=== PATIENT | female | born 1970 | race African-American/Black ===

== ENCOUNTER 2019-07-15 10:22 | Emergency (ER) | payer SELFPAY ==
--- NOTE | 2019-07-15 11:05 | ER Document Report ---
ED Medical Screen (RME) - General Chief Complaint: Headache Stated Complaint: HEADACHE Time Seen by Provider: 07/15/19 11:00 Notes: Patient is a 49-year-old female who presents to the emergency department with a chief complaint of headache. Her headache started yesterday. She states that it is only slight now. She has been taking ibuprofen to help with her pain. She denies any numbness, tingling, or any other symptoms. Patient has a history of hypertension and was taken off her lisinopril/hydrochlorothiazide. Patient states that she has not been on them for a while. Exam: S1, S2. Blood pressure 170/124. I have greeted and performed a rapid initial assessment of this patient. A comprehensive ED assessment and evaluation of the patient, analysis of test results and completion of medical decision making process will be conducted by an additional ED providers. Physical Exam - Vital signs Vitals: Temp Pulse Resp BP Pulse Ox 99.5 F 100 18 170/124 H 97 07/15/19 10:42 07/15/19 10:42 07/15/19 10:42 07/15/19 10:42 07/15/19 10:42 Course - Vital Signs Vital signs: Temp Pulse Resp BP Pulse Ox 99.5 F 100 18 170/124 H 97 07/15/19 10:42 07/15/19 10:42 07/15/19 10:42 07/15/19 10:42 07/15/19 10:42
[2019-07-15 12:09] LABS: ABSOLUTE EOSINOPHILS # (AUTO) 0.1 10^3/uL (0.0-0.6); ABSOLUTE LYMPHOCYTES (AUTO) 0.9 10^3/uL (0.5-4.7); ABSOLUTE MONOCYTES (AUTO) 0.9 10^3/uL (0.1-1.4); BASOPHILS % (AUTO) 0.8 % (0-2); EOSINOPHILS % (AUTO) 1.1 % (0-6); HEMATOCRIT 37.9 % (36.0-47.0); HEMOGLOBIN 12.4 g/dL (12.0-15.5); LYMPHOCYTES % (AUTO) 15.4 % (13-45); MEAN CORPUSCULAR HEMOGLOBIN 26.3 pg (27.0-33.4); MEAN CORPUSCULAR HGB CONC 32.7 g/dL (32.0-36.0); MEAN CORPUSCULAR VOLUME 80 fl (80-97); MONOCYTES % (AUTO) 15.1 % (3-13); PLATELET COUNT 139 10^3/uL (150-450); RED BLOOD COUNT 4.72 10^6/uL (3.72-5.28); RED CELL DISTRIBUTION WIDTH 14.9 % (11.5-14.0); SEGMENTED NEUTROPHILS % (AUTO) 67.6 % (42-78); TOTAL CELLS COUNTED % (AUTO) 100 %; WHITE BLOOD COUNT 5.9 10^3/uL (4.0-10.5)
[2019-07-15 12:24] LABS: APPEARANCE,URINE SLIGHTLY-CLOUDY; BILIRUBIN,URINE NEGATIVE (NEGATIVE); GLUCOSE, URINE NEGATIVE (NEGATIVE); KETONES,URINE NEGATIVE (NEGATIVE); PROTEIN,URINE 100 mg/dL (NEGATIVE); URINE SPECIFIC GRAVITY 1.025
[2019-07-15 12:27] LABS: ALBUMIN 3.4 g/dL (3.5-5.0); ALKALINE PHOSPHATASE 59 U/L (38-126); ASPARTATE AMINO TRANSFERASE 78 U/L (14-36); BILIRUBIN,DIRECT 0.1 mg/dL (0.0-0.4); BILIRUBIN,TOTAL 0.7 mg/dL (0.2-1.3); BLOOD UREA NITROGEN 15 mg/dL (7-20); CALCIUM 8.7 mg/dL (8.4-10.2); COLOR,URINE YELLOW; GLUCOSE 77 mg/dL (75-110); POTASSIUM 3.5 mmol/L (3.6-5.0); TOTAL PROTEIN 7.5 g/dL (6.3-8.2)
[2019-07-15 12:32] LABS: ANION GAP 7 (5-19); CARBON DIOXIDE 30 mmol/L (22-30); CHLORIDE 100 mmol/L (98-107)
--- NOTE | 2019-07-15 13:14 | EKG REPORT ---
SEVERITY:- ABNORMAL ECG - SINUS RHYTHM LVH WITH SECONDARY REPOLARIZATION ABNORMALITY : Confirmed by: Hong Pfeiffer MD 15-Jul-2019 13:12:54
--- NOTE | 2019-07-15 15:01 | ER Document Report ---
ED General - General Chief Complaint: Headache >24 hrs old Stated Complaint: HEADACHE Time Seen by Provider: 07/15/19 11:00 Mode of Arrival: Ambulatory Information source: Patient TRAVEL OUTSIDE OF THE [place] IN LAST 30 DAYS: No - HPI Notes: Patient presents with multiple complaints. She states for 2 months she has had diffuse joint aches. She states that the joint that hurts randomly changes. She has had also some swelling of certain fingers. Currently she has no joint pain or finger swelling. She also states that yesterday she had a headache and vomited once. She states she has no headache now and is no longer nauseous. She states she had several frequent stools yesterday but normal stool today she states that she has had no dysuria urgency frequency. No cough cold or congestion. She has never been previously diagnosed with any type of arthritis. She also said yesterday she had some sensations of her heart racing but none today. Patient's joint pain has been moderate to severe. She states sometimes she cannot even bend her toes when her left foot has the swelling. Currently her left foot is normal. Currently she has no pain in the left foot. There is nothing that makes the pain better except rest. It is worse with movement. The pain radiates from the affected joint up or down the extremity. It is intermittent. - Related Data Allergies/Adverse Reactions: No Known Allergies Allergy (Unverified 07/15/19 11:05) Past Medical History - General Information source: Patient - Social History Smoking Status: Never Smoker Chew tobacco use (# tins/day): No Frequency of alcohol use: None Drug Abuse: None Family History: Reviewed & Not Pertinent Patient has suicidal ideation: No Patient has homicidal ideation: No - Past Medical History Cardiac Medical History: Reports: Hx Hypertension Review of Systems - Review of Systems Constitutional: denies: Chills, Fever Cardiovascular: Palpitations. denies: Chest pain Respiratory: denies: Cough, Short of breath Gastrointestinal: denies: Abdominal pain, Diarrhea -: Yes All other systems reviewed and negative Physical Exam - Vital signs Vitals: Temp Pulse Resp BP Pulse Ox 99.5 F 100 18 170/124 H 97 07/15/19 10:42 07/15/19 10:42 07/15/19 10:42 07/15/19 10:42 07/15/19 10:42 Interpretation: Hypertensive - General General appearance: Appears well, Alert - HEENT Head: Normocephalic, Atraumatic Eyes: Normal Pupils: PERRL - Respiratory Respiratory status: No respiratory distress Chest status: Nontender Breath sounds: Normal Chest palpation: Normal - Cardiovascular Rhythm: Regular Heart sounds: Normal auscultation Murmur: No - Abdominal Inspection: Normal Distension: No distension Bowel sounds: Normal Tenderness: Nontender Organomegaly: No organomegaly - Back Back: Normal, Nontender - Extremities General upper extremity: Normal inspection, Nontender, Normal color, Normal ROM, Normal temperature General lower extremity: Normal inspection, Nontender, Normal color, Normal ROM, Normal temperature, Normal weight bearing. No: Cody's sign - Neurological Neuro grossly intact: Yes Cognition: Normal Orientation: AAOx4 [place] Coma Scale Eye Opening: Spontaneous Brando Coma Scale Verbal: Oriented Brando Coma Scale Motor: Obeys Commands [place] Coma Scale Total: 15 Speech: Normal Motor strength normal: LUE, RUE, LLE, RLE Sensory: Normal - Psychological Associated symptoms: Normal affect, Normal mood - Skin Skin Temperature: Warm Skin Moisture: Dry Skin Color: Normal Course - Re-evaluation Re-evalutation: 07/15/19 14:58 Patient presents with 2 months of intermittent migrating joint pain. As well as some headache and palpitations yesterday. Today she has essentially no symptoms. She has normal vitals other than uncontrolled blood pressure. She has complaints of joint pain but no joint pain currently and no joint ab normalities on exam currently. She also has an otherwise unremarkable exam and vitals as mentioned above. I am going to start her on medication for her elevated blood pressure. I am going to place her on some pain medicine and refer her to her primary doctor. I have informed her that she should discuss referral to rheumatology with her primary doctor. I did double check with the patient that she has a primary doctor and she says she does. She states [facility] 07/15/19 15:06 - Vital Signs Vital signs: Temp Pulse Resp BP Pulse Ox 99.5 F 100 16 157/118 H 99 07/15/19 10:42 07/15/19 10:42 07/15/19 13:01 07/15/19 13:00 07/15/19 13:01 - Laboratory Result Diagrams: 07/15/19 11:55 07/15/19 11:55 Laboratory results interpreted by me: 07/15/19 07/15/19 07/15/19 11:55 11:55 11:55 MCH 26.3 L RDW 14.9 H Plt Count 139 L [place] % (Auto) 15.1 H Sodium 136.7 L Potassium 3.5 L Est GFR (MDRD) Non-Af 51 L AST 78 H Albumin 3.4 L Urine Protein 100 H Urine Urobilinogen 2.0 H - EKG Interpretation by Me EKG shows normal: Sinus rhythm Rate: Normal - 88 Rhythm: NSR Voltage: Consistant with LVH Discharge - Discharge Clinical Impression: Polyarthralgia, Palpitations Condition: Stable Disposition: HOME, SELF-CARE Additional Instructions: Please call your primary doctor as soon as possible. 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 He also need to discuss your blood pressure as it is very elevated today. I am going to start you on a blood pressure medicine today called Jazlyn. He will need to discuss with your primary doctor whether the dose we have started you that is effective and whether or not you need to increase or decrease the dose. This appointment should be approximately 5 to 7 days from today. Prescriptions: Amlodipine Besylate [Norvasc 5 mg Tablet] 5 mg PO DAILY #30 tablet Tramadol HCl [Ultram] 50 mg PO Q6 PRN 3 Days #12 tablet PRN Reason: Forms: Elevated Blood Pressure
[2019-07-15 15:14] VITALS: BP 152/109
== END 2019-07-15 15:17 | disposition home or self-care (01) ==
LOC: ER 10:22
DX: M25.50 Pain in unspecified joint (principal); R00.2 Palpitations; R51 Headache; R11.10 Vomiting, unspecified; I10 Essential (primary) hypertension
CPT/HCPCS: 36415; 80053; 81001; 84703; 85025; 93005; 93010; 99284

== ENCOUNTER 2019-08-18 19:01 | Emergency (ER) | payer OTHER ==
--- NOTE | 2019-08-18 20:14 | ER Document Report ---
ED General - General Chief Complaint: Breathing Difficulty Stated Complaint: SHORT OF BREATH, HAND/FEET SWELLING Time Seen by Provider: 08/18/19 19:14 TRAVEL OUTSIDE OF THE [place] IN LAST 30 DAYS: No - Related Data Allergies/Adverse Reactions: No Known Allergies Allergy (Unverified 07/15/19 11:05) Home Medications: tylenol garlic capsule vit d Past Medical History - Social History Smoking Status: Former Smoker Family History: Reviewed & Not Pertinent Patient has suicidal ideation: No Patient has homicidal ideation: No - Past Medical History Cardiac Medical History: Reports: Hx Hypertension Physical Exam - Vital signs Vitals: Temp Pulse Resp BP Pulse Ox 98.4 F 100 18 143/99 H 97 08/18/19 19:12 08/18/19 19:12 08/18/19 19:12 08/18/19 19:12 08/18/19 19:12 Course - Vital Signs Vital signs: Temp Pulse Resp BP Pulse Ox 98.4 F 100 18 143/99 H 97 08/18/19 19:12 08/18/19 19:12 08/18/19 19:12 08/18/19 19:12 08/18/19 19:12
--- NOTE | 2019-08-18 20:50 | ER Document Report ---
ED General - General Chief Complaint: Breathing Difficulty Stated Complaint: SHORT OF BREATH, HAND/FEET SWELLING Time Seen by Provider: 08/18/19 19:14 TRAVEL OUTSIDE OF THE [place] IN LAST 30 DAYS: No - Related Data Allergies/Adverse Reactions: No Known Allergies Allergy (Unverified 07/15/19 11:05) Home Medications: tylenol garlic capsule vit d Past Medical History - Social History Smoking Status: Former Smoker Family History: Reviewed & Not Pertinent Patient has suicidal ideation: No Patient has homicidal ideation: No - Past Medical History Cardiac Medical History: Reports: Hx Hypertension Physical Exam - Vital signs Vitals: Temp Pulse Resp BP Pulse Ox 98.4 F 100 18 143/99 H 97 08/18/19 19:12 08/18/19 19:12 08/18/19 19:12 08/18/19 19:12 08/18/19 19:12 - Notes Notes: Patient presents emerged department multiple complaints. 1 shot shortness of breath. She discusses dyspnea on exertion. Been off for couple days. No associated fevers cough chest pain or palpitations. #2 is swelling of the hands and feet. She says this is been going on for 2 to 3 months. There is any trauma to the area. They have been not have not been red or hot to the touch. She denies any overuse. The swelling does not get better in the morning. #3 joint pain. She is complaining of pain in her knee elbow and shoulder for the past several months also again denies any trauma falls or overuse. #4 facial rash. Located in the malar area of the face on and off for several months. No contact history associated with this. But she also reports that she is breaking out with a rash intermittently on her hand. It has been on several different fingers She denies any headaches or abnormal vision. She denies any nausea vomiting abdominal pain diarrhea or dysuria. She denies any recent tick bites. She has no history of IV drug abuse hepatitis or blood transfusions. No previous history of liver disease connective tissue disease. Reports that her aunt has a history of lupus is never been diagnosed with this. She denies any fevers night sweats or recent surgery. Past medical history sent for hypertension no diabetes or heart disease Social history does not smoke or drink at all. LMP was 2 weeks ago. Medications she has no control pills Review of systems pertinent positives and negatives in HPI otherwise all the systems were reviewed and acutely negative PHYSICIAN EXAM -vital signs are noted triage note and note from triage reviewed GENERAL: Well-appearing, well-nourished and in ___no acute distress___ HEAD: Atraumatic, normocephalic. EYES: Pupils equal round and reactive to light, extraocular movements intact, sclera anicteric, conjunctiva are normal. ENT: nares patent, oropharynx clear without exudates. Moist mucous membranes. NECK: supple without lymphadenopathy LUNGS: Breath sounds clear to auscultation bilaterally and equal. No wheezes rales or rhonchi. HEART: Regular rate and rhythm without murmurs ABDOMEN: Soft, nontender, normoactive bowel sounds. Spleen not enlarged EXTREMITIES: Minimal swelling in both hands. She has good capillary refill. There is trace edema in the foot. No palpable cords. I do not appreciate any swelling of the knee. There is no patella effusion just range of motion of the knee. Minimally tenderness over the patella bilaterally but there is no redness or increased warmth. Some minimal tenderness over the dorsum of the foot bilaterally no redness. Elbow and shoulder is nontender with good range of motion NEUROLOGICAL: No focal neurological deficits. Moves all extremities spontaneously and on command. PSYCH: Normal mood, normal affect. 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 The symptoms of rash and joint pain is really concerning for lupus. There is some routine laboratory studies that will be helpful in that evaluation. Advised the patient these labs will take several days f to return and she will need to follow-up w ith the family doctor 5 days of the clinic get those results. Shortness of breath she does appear to have a mild pneumonia. She is not tachycardic or tachypneic and has no significant comorbidities I think should be managed as an outpatient she will be given a dose of Zithromax here prescription she looks well she has no white count she is not toxic appearing. This may even represent a viral syndrome Dictation was done using voice recognition software. There may be some grammatical errors which are unintentional I discussed results of laboratory findings and diagnostic test with patient/ family. The treatment plan was explained and I reviewed the discharge instructions with them. Questions were answered. The patient/family verbalizes understanding 08/19/19 00:01 - Vital Signs Vital signs: Temp Pulse Resp BP Pulse Ox 98.4 F 100 14 140/101 H 97 08/18/19 19:12 08/18/19 19:12 08/18/19 21:01 08/18/19 21:01 08/18/19 21:01 - Laboratory Result Diagrams: 08/18/19 21:00 08/18/19 21:00 Laboratory results interpreted by me: 08/18/19 08/18/19 08/18/19 21:00 21:00 21:50 RDW 15.0 H Plt Count 141 L [place] % (Auto) 14.6 H ESR 34 H Potassium 3.2 L AST 101 H Albumin 3.2 L Urine Urobilinogen 2.0 H - Diagnostic Test Radiology reviewed: Reports reviewed - EEG read by me shows a normal sinus rhythm with some minimal nonspecific ST ST wave changes with flattening of the T waves change from previous Discharge - Discharge Clinical Impression: Pneumonia Qualifiers: Pneumonia type: due to unspecified organism Laterality: bilateral Arthralgia Qualifiers: Joint pain location: unspecified Qualified Code(s): M25.50 - Pain in unspecified joint Condition: Good Disposition: HOME, SELF-CARE Instructions: Pneumonia ([facility]), Arthralgia ([facility]) Additional Instructions: Please review the discharge instructions, they will tell you about your disease/injury and what you need to return to the ED for Return to the ED if you feel worse or can follow-up with your family doctor Report that you follow-up with your family doctor or the clinic in 3 to 5 days check the results of your blood work Return if you develop high fevers worsening shortness of breath Prescriptions: Ketorolac Tromethamine [Toradol 10 mg Tablet] 10 mg PO Q6HP PRN #15 tablet PRN Reason: Azithromycin [Zithromax] 250 mg PO DAILY #4 tablet
[2019-08-18 21:12] LABS: ABSOLUTE EOSINOPHILS # (AUTO) 0.1 10^3/uL (0.0-0.6); ABSOLUTE LYMPHOCYTES (AUTO) 0.9 10^3/uL (0.5-4.7); ABSOLUTE MONOCYTES (AUTO) 0.6 10^3/uL (0.1-1.4); ABSOLUTE NEUT (AUTO) 2.6 10^3/uL (1.7-8.2); EOSINOPHILS % (AUTO) 1.2 % (0-6); HEMATOCRIT 36.3 % (36.0-47.0); HEMOGLOBIN 12.2 g/dL (12.0-15.5); LYMPHOCYTES % (AUTO) 21.4 % (13-45); MEAN CORPUSCULAR HEMOGLOBIN 27.2 pg (27.0-33.4); MEAN CORPUSCULAR HGB CONC 33.7 g/dL (32.0-36.0); MEAN CORPUSCULAR VOLUME 81 fl (80-97); MONOCYTES % (AUTO) 14.6 % (3-13); PLATELET COUNT 141 10^3/uL (150-450); SEGMENTED NEUTROPHILS % (AUTO) 61.8 % (42-78); TOTAL CELLS COUNTED % (AUTO) 100 %; WHITE BLOOD COUNT 4.2 10^3/uL (4.0-10.5)
[2019-08-18 21:42] LABS: ALBUMIN 3.2 g/dL (3.5-5.0); ALKALINE PHOSPHATASE 60 U/L (38-126); ANION GAP 7 (5-19); ASPARTATE AMINO TRANSFERASE 101 U/L (14-36); BILIRUBIN,DIRECT 0.2 mg/dL (0.0-0.4); BILIRUBIN,TOTAL 0.4 mg/dL (0.2-1.3); BLOOD UREA NITROGEN 15 mg/dL (7-20); CALCIUM 8.7 mg/dL (8.4-10.2); CARBON DIOXIDE 28 mmol/L (22-30); CHLORIDE 105 mmol/L (98-107); GLUCOSE 102 mg/dL (75-110); POTASSIUM 3.2 mmol/L (3.6-5.0); TOTAL PROTEIN 7.1 g/dL (6.3-8.2)
[2019-08-18 21:53] LABS: ERYTHROCYTE SEDIMENTATION RATE 34 mm/hr (0-20)
--- NOTE | 2019-08-18 22:29 | RADIOLOGY REPORT (SQ) ---
EXAM DESCRIPTION: XR CHEST 2 VIEWS COMPLETED DATE/TME: 08/18/2019 20:33 CLINICAL HISTORY: 49 years, Female, Shortness of breath COMPARISON: None. NUMBER OF VIEWS: 2 TECHNIQUE: 2 views of the chest LIMITATIONS: None. FINDINGS: The heart size is normal. Patchy airspace opacities bilaterally which could reflect multifocal pneumonia. No pneumothorax IMPRESSION: Patchy airspace opacities which may reflect multifocal pneumonia copyright 2010 [employer]- All Rights Reserved
[2019-08-18 22:45] LABS: APPEARANCE,URINE CLEAR; BILIRUBIN,URINE NEGATIVE (NEGATIVE); COLOR,URINE YELLOW; GLUCOSE, URINE NEGATIVE (NEGATIVE); KETONES,URINE NEGATIVE (NEGATIVE); LEUKOCYTE ESTERASE,URINE NEGATIVE (NEGATIVE); NITRITE,URINE NEGATIVE (NEGATIVE); PROTEIN,URINE NEGATIVE (NEGATIVE); URINE SPECIFIC GRAVITY 1.012
--- NOTE | 2019-08-18 23:34 | EKG REPORT ---
SEVERITY:- BORDERLINE ECG - SINUS RHYTHM BORDERLINE T ABNORMALITIES, DIFFUSE LEADS : Confirmed by: Lore Wood 18-Aug-2019 23:34:05
[2019-08-18] MEDS ORDERED: AZITHROMYCIN 250 MG TABLET PO ONE (23:57)
[2019-08-19 00:28] VITALS: BP 151/109
[2019-08-20 14:36] LABS: ANTICHROMATIN AB <0.2 AI (0.0-0.9); CENTROMERE B AB <0.2 AI (0.0-0.9); JO-1 ANTIBODY (ANACOMP) <0.2 AI (0.0-0.9); SJOGREN'S ANTI-SS-B AB <0.2 AI (0.0-0.9); SJOGREN'S SS-A ANTIBODY <0.2 AI (0.0-0.9)
[2019-08-20 14:44] LABS: DNA DOUBLE STRAND ANTIBODY ANA <1 IU/mL (0-9)
== END 2019-08-19 00:27 | disposition home or self-care (01) ==
LOC: ER 19:01
DX: J18.9 Pneumonia, unspecified organism (principal); M25.569 Pain in unspecified knee; M25.529 Pain in unspecified elbow; M25.519 Pain in unspecified shoulder; R06.02 Shortness of breath; R21 Rash and other nonspecific skin eruption; M79.89 Other specified soft tissue disorders; R60.0 Localized edema; I10 Essential (primary) hypertension; Z79.899 Other long term (current) drug therapy
CPT/HCPCS: 36415; 71046; 80053; 81001; 81025; 85025; 85597; 85598; 85613; 85652; 85730; 85732; 86146; 86147; 86148; 86160; 86215; 86225; 86235; 86849; 93005; 93010; 99285

== ENCOUNTER 2019-09-17 10:30 | Inpatient (IN) | payer BC, OTHER ==
--- NOTE | 2019-09-17 11:11 | ER Document Report ---
ED Medical Screen (RME) - General Chief Complaint: Shortness Of Breath Stated Complaint: SHORTNESS OF BREATH Time Seen by Provider: 09/17/19 11:04 Mode of Arrival: Ambulatory Information source: Patient Notes: patient presents to the ED with c/o SOB body pain for 6 weeks. Was dx with pneumonia 6 weeks ago. pt also reports she was told she has Arthritis. Patient is very tearful reports she aches all over. I have greeted and performed a rapid initial assessment of this patient. A comprehensive ED assessment and evaluation of the patient, analysis of test results and completion of the medical decision making process will be conducted by additional ED providers. TRAVEL OUTSIDE OF THE [place] IN LAST 30 DAYS: No - Related Data Allergies/Adverse Reactions: No Known Allergies Allergy (Verified 09/17/19 11:07) Past Medical History - Past Medical History Cardiac Medical History: Reports: Hx Hypertension Physical Exam - Vital signs Vitals: Temp Pulse Resp BP Pulse Ox 98.6 F 123 H 16 112/80 92 09/17/19 10:58 09/17/19 10:58 09/17/19 10:58 09/17/19 10:58 09/17/19 10:58 Course - Vital Signs Vital signs: Temp Pulse Resp BP Pulse Ox 98.6 F 123 H 16 112/80 92 09/17/19 10:58 09/17/19 10:58 09/17/19 10:58 09/17/19 10:58 09/17/19 10:58
[2019-09-17 11:52] LABS: HEMATOCRIT 37.2 % (36.0-47.0); HEMOGLOBIN 12.2 g/dL (12.0-15.5); MEAN CORPUSCULAR HGB CONC 32.8 g/dL (32.0-36.0); MEAN CORPUSCULAR VOLUME 82 fl (80-97); PLATELET COUNT 178 10^3/uL (150-450); RED BLOOD COUNT 4.52 10^6/uL (3.72-5.28); RED CELL DISTRIBUTION WIDTH 14.1 % (11.5-14.0); WHITE BLOOD COUNT 5.6 10^3/uL (4.0-10.5)
--- NOTE | 2019-09-17 11:58 | RADIOLOGY REPORT (SQ) ---
EXAM DESCRIPTION: CHEST 2 VIEWS COMPLETED DATE/TIME: 09/17/2019 11:37 am REASON FOR STUDY: cp COMPARISON: 08/18/2019 EXAM PARAMETERS: NUMBER OF VIEWS: two views TECHNIQUE: Digital Frontal and Lateral radiographic views of the chest acquired. RADIATION DOSE: NA LIMITATIONS: none FINDINGS: LUNGS AND PLEURA: Multifocal patchy opacities within the left mid lung and right lung base , similar to prior. No significant pleural effusion. No pneumothorax. MEDIASTINUM AND HILAR STRUCTURES: No masses or contour abnormalities. HEART AND VASCULAR STRUCTURES: Heart normal size. No evidence for failure. BONES: No acute findings. HARDWARE: None in the chest. OTHER: No other significant finding. IMPRESSION: Multifocal patchy opacities within the bilateral lung bases suspicious for multifocal pn eumonia and similar to prior. Recommend follow-up to ensure resolution. TECHNICAL DOCUMENTATION: JOB ID: [id number] [employer]- All Rights Reserved Reading location - IP/workstation name: [email or web address]
[2019-09-17 11:59] LABS: A TYPE INFLUENZA AG NEGATIVE (NEGATIVE); B INFLUENZA AG NEGATIVE (NEGATIVE)
[2019-09-17 12:03] LABS: ALBUMIN 3.4 g/dL (3.5-5.0); ALKALINE PHOSPHATASE 58 U/L (38-126); ANION GAP 9 (5-19); ASPARTATE AMINO TRANSFERASE 101 U/L (14-36); BILIRUBIN,DIRECT 0.2 mg/dL (0.0-0.4); BILIRUBIN,TOTAL 0.5 mg/dL (0.2-1.3); BLOOD UREA NITROGEN 28 mg/dL (7-20); CALCIUM 9.1 mg/dL (8.4-10.2); CARBON DIOXIDE 27 mmol/L (22-30); CHLORIDE 104 mmol/L (98-107); CREATINE KINASE 32 U/L (30-135); GLUCOSE 112 mg/dL (75-110); POTASSIUM 3.9 mmol/L (3.6-5.0); TOTAL PROTEIN 7.7 g/dL (6.3-8.2)
[2019-09-17 12:23] LABS: ABSOLUTE LYMPHOCYTES# (MANUAL) 0.6 10^3/uL (0.5-4.7); ABSOLUTE MONOCYTES # (MANUAL) 0.8 10^3/uL (0.1-1.4); BASOPHILS % (MANUAL) 0 % (0-2); EOSINOPHILS % (MANUAL) 0 % (0-6); LYMPHOCYTES % (MANUAL) 11 % (13-45); MONOCYTES % (MANUAL) 14 % (3-13); SEGMENTED NEUTROPHILS % (MAN) 75 % (42-78); TOTAL CELLS COUNTED 100
[2019-09-17 12:24] LABS: ANISOCYTOSIS SLIGHT; PLATELET COMMENT ADEQUATE; PLATELET LARGE PRESENT
[2019-09-17 12:25] LABS: OVALOCYTES SLIGHT
--- NOTE | 2019-09-17 13:49 | EKG REPORT ---
SEVERITY:- BORDERLINE ECG - SINUS TACHYCARDIA BORDERLINE T ABNORMALITIES, DIFFUSE LEADS : Confirmed by: Hong Pfeiffer MD 17-Sep-2019 13:48:47
[2019-09-17] MEDS ORDERED: VANCOMYCIN HCL INJ 1000 MG VIAL IV ONE ×2 (13:54→16:15)
[2019-09-17] MEDS ORDERED: PIPERACILLIN/TAZOBACTAM 3.375 GM VIAL IV ONE (13:54)
[2019-09-17] MEDS ORDERED: NORMAL SALINE 1000 ML 1,000 ML IV ONE (13:55)
--- NOTE | 2019-09-17 14:20 | ER Document Report ---
ED Respiratory Problem - General Chief Complaint: Shortness Of Breath Stated Complaint: SHORTNESS OF BREATH Time Seen by Provider: 09/17/19 11:04 Primary Care Provider: GEORGINA ZHOU MD [Primary Care Provider] - Follow up as needed Mode of Arrival: Ambulatory Notes: Ms. White is a 49 yo f w/ PMH rheumatoid arthritis and hypertension presenting to the ED for cough, and worsening dyspnea upon exertion. Patient states that she was seen here earlier this month on August 18 and was diagnosed with pneumonia. She was given azithromycin in the ED and discharged with the remaining dose pack. She states that she was better for period of time while on antibiotics but her cough worsened again. She states that she is having shortness of breath with minimal exertion. She states she has been attempting to see a commercial kitchen service technician however she has not been able to get an appointment. Jovan malin endorses subjective fevers and chills. She states she is not on any immunosuppressants. Patient denies any other autoimmune diseases. She denies any chest pain, abdominal pain, nausea, vomiting or diarrhea. Patient denies any known ill contacts. She states she smoked for a total of 2 years, over 20 years ago and only smoked 1 pack every 3 days. TRAVEL OUTSIDE OF THE [place] IN LAST 30 DAYS: No - Related Data Allergies/Adverse Reactions: No Known Allergies Allergy (Verified 09/17/19 11:07) Home Medications: toradol. bp Past Medical History - General Information source: Patient - Social History Smoking Status: Unknown if Ever Smoked Drug Abuse: None Family History: Reviewed & Not Pertinent Patient has suicidal ideation: No Patient has homicidal ideation: No - Past Medical History Cardiac Medical History: Reports: Hx Hypertension Review of Systems - Review of Systems Constitutional: See HPI EENT: No symptoms reported Cardiovascular: See HPI Respiratory: See HPI Gastrointestinal: No symptoms reported Genitourinary: No symptoms reported Female Genitourinary: No symptoms reported Musculoskeletal: No symptoms reported Skin: No symptoms reported Hematologic/Lymphatic: No symptoms reported Neurological/Psychological: No symptoms reported Physical Exam - Vital signs Vitals: Temp Pulse Resp BP Pulse Ox 98.6 F 123 H 16 112/80 92 09/17/19 10:58 09/17/19 10:58 09/17/19 10:58 09/17/19 10:58 09/17/19 10:58 Interpretation: Tachycardic - General General appearance: Appears well, Alert - HEENT Head: Normocephalic, Atraumatic Eyes: Normal Pupils: PERRL - Respiratory Respiratory status: No respiratory distress Chest status: Nontender Breath sounds: Decreased air movement, Nonproductive cough Chest palpation: Normal - Cardiovascular Rhythm: Tachycardia Heart sounds: Normal auscultation Murmur: No - Abdominal Inspection: Normal Distension: No distension Bowel sounds: Normal Tenderness: Nontender Organomegaly: No organomegaly - Back Back: Normal, Nontender - Extremities General upper extremity: Normal inspection, Nontender, Normal color, Normal ROM, Normal temperature General lower extremity: Normal inspection, Nontender, Normal color, Normal ROM, Normal temperature, Normal weight bearing. No: Cody's sign - Neurological Neuro grossly intact: Yes Cognition: Normal Orientation: AAOx4 Norton Coma Scale Eye Opening: Spontaneous Norton Coma Scale Verbal: Oriented Brando Coma Scale Motor: Obeys Commands Norton Coma Scale Total: 15 Speech: Normal Motor strength normal: LUE, RUE, LLE, RLE Sensory: Normal - Psychological Associated symptoms: Normal affect, Normal mood - Skin Skin Temperature: Warm Skin Moisture: Dry Skin Color: Normal Skin irregularity: other - Multiple 0.5 to 1 cm lesions that are hyperpigmented on the palmar surface of the patient's hand both at the digits and to her palms. Location of irregularity: Face - Diffuse malar rash. Course - Re-evaluation Re-evalutation: Patient is chronically ill-appearing but nontoxic. Initial vitals notable for tachycardia. Patient felt warm to touch upon my evaluation and I rechecked her temperature and it was 99.9 orally. Differential diagnosis includes pneumonia, sepsis (less likely), sarcoidosis, lupus, pulmonary embolism (less likely) 09/17/19 14:20 Patient's labs do not show significant leukocytosis or left shift. H&H is stable. Patient has high monocytes. She also has large platelets and some abnormal cell types such as anisocytosis and ovalocytes. CMP notable for increased BUN to creatinine ratio of 28. Patient was ordered for fluids. No significant lactic acidosis initial troponin is negative. Influenza a and B are both negative. Chest x-ray shows multifocal patchy opacities within the bilateral lung bases suspicious for multifocal pneumonia and similar to prior examination. The patient is endorsing worsening symptoms and was here and treated with outpatient antibiotics of azithromycin earlier this month, will administer broad-spectrum antibiotics with Vanco/Zosyn. 09/17/19 16:[address] Armstrong. Requested call to Dr. Vizcarra. 09/17/19 16:[address] Vizcarra. Requested a CT. Patient will be admitted to the medical floor. Chief call from radiology. CT shows bilateral basal predominant consolidations with groundglass opacities with irregular bronchovascular thickening. There is also evidence of shotty mediastinal adenopathy. These are nonspecific and could be related to sarcoidosis however infection cannot be excluded. Recommended pulmonary consultation. - Vital Signs Vital signs: Temp Pulse Resp BP Pulse Ox 98.6 F 123 H 20 115/87 H 100 09/17/19 10:58 09/17/19 10:58 09/17/19 15:01 09/17/19 15:01 09/17/19 15:01 - Laboratory Result Diagrams: 09/17/19 11:26 09/17/19 11:26 Laboratory results interpreted by me: 09/17/19 09/17/19 11:26 11:26 RDW 14.1 H Lymphocytes % (Manual) 11 L Monocytes % (Manual) 14 H BUN 28 H Est GFR ( Amer) 56 L Est GFR (MDRD) Non-Af 46 L Glucose 112 H AST 101 H Albumin 3.4 L Discharge - Discharge Clinical Impression: Multifocal pneumonia, Dyspnea on exertion, Malar rash Condition: Good Disposition: HOME, SELF-CARE Admitting Provider: Carmita (Hospitalist) Unit Admitted: Medical Floor Referrals: GEORGINA ZHOU MD [Primary Care Provider] - Follow up as needed
[2019-09-17] MEDS ORDERED: IPRATROPIUM/ALBUTEROL 0.5-2.5 MG/3 ML AMPUL NEB ONE (16:19)
--- NOTE | 2019-09-17 17:22 | RADIOLOGY REPORT (SQ) ---
EXAM DESCRIPTION: CT CHEST WITHOUT COMPLETED DATE/TIME: 09/17/2019 4:45 pm REASON FOR STUDY: evaluate pnuemonia vs sarcoid COMPARISON: 09/17/2019 TECHNIQUE: CT scan performed of the chest without intravenous contrast. Images reviewed with lung, soft tissue and bone windows. Reconstructed coronal and sagittal MPR images reviewed. All images st ored on PACS. All CT scanners at this facility use dose modulation, iterative reconstruction, and/or weight based d osing when appropriate to reduce radiation dose to as low as reasonably achievable (ALARA). [facility]: Dose Right [facility]: CareDose [facility]: Dose Right [facility]: Teradose 4D [facility]: IFTTT RADIATION DOSE: CT Rad equipment meets quality standard of care and radiation dose reduction techniq ues were employed. CTDIvol: 6.3 mGy. DLP: 219 mGy-cm. mGy. LIMITATIONS: No technical limitations. FINDINGS: LUNGS AND PLEURA: Lungs demonstrate multifocal areas of basilar predominant consolidation and ground-glass attenuation with irregular bronchovascular thickening. No significant pleural effus ion or pneumothorax. HILAR AND MEDIASTINAL STRUCTURES: Mediastinal adenopathy. Evaluation for hilar nodes limited seconda ry to lack of contrast. There is a AP window node measuring 11 mm in short axis (series 3, image 20) . HEART AND VASCULAR STRUCTURES: No aneurysm. No pericardial effusion. UPPER ABDOMEN: No significant findings. Limited exam. THYROID AND OTHER SOFT TISSUES: No masses. No adenopathy. BONES: No significant finding. HARDWARE: None in the chest. OTHER: No other significant findings. IMPRESSION: Bilateral basal predominant consolidation and ground-glass opacities with irregular bron chovascular thickening. Shotty mediastinal adenopathy. Findings nonspecific and while may be seen w ith sarcoidosis, infection is not entirely excluded. Consider pulmonary consultation. TECHNICAL DOCUMENTATION: JOB ID: [id number] Quality ID # [id number]: Final reports with documentation of one or more dose reduction techniques (e.g., Au tomated exposure control, adjustment of the mA and/or kV according to patient size, use of iterative reconstruction technique) 2010 [employer]- All Rights Reserved Reading location - IP/workstation name: [email or web address]
[2019-09-17] MEDS ORDERED: KETOROLAC TROMETHAMINE 10 MG TABLET PO PRN (17:40)
[2019-09-17] MEDS ORDERED: ACETAMINOPHEN 325 MG TABLET PO PRN (17:41)
--- NOTE | 2019-09-17 17:59 | PDOC H&P ---
History of Present Illness Admission Date/PCP: GEORGINA ZHOU MD Patient complains of: Dyspnea and arthralgias History of Present Illness: HARMEET ESPARZA is a 49 year old female with history of hypertension, presents with complaints of worsening dyspnea for the past month. Patient came to the ER at beginning of August with cough and dyspnea was discharged with azithromycin. Patient took this for a few days and her symptoms improved but later started to worsen. The cough is pretty much resolved with only some mild throat clearing on occasion. Patient also endorses significant dyspnea on exertion. She denies orthopnea. Patient also complains of polyarthralgias involving her knees, shoulders, joints and hands elbows, and ankles. Patient states that she was told in the ER our last visit that she may have rheumatoid arthritis but has never been officially diagnosed with this. Denies fevers. Endorses occasional joint swelling involving those joints. Also acknowledges facial rash and discolorations in palmar surface which have been present since February this year. Past Medical History Cardiac Medical History: Reports: Hypertension Past Surgical History Past Surgical History: Reports: Other Social History Information Source: Patient Lives with: Family Smoking Status: Never Smoker Frequency of Alcohol Use: None Hx Recreational Drug Use: No Hx Prescription Drug Abuse: No - Advance Directive Resuscitation Status: Full Code Family History Family History: Arthritis, DM, Hypertension, Other - CHF in brother Parental Family History Reviewed: Yes Children Family History Reviewed: NA Sibling(s) Family History Reviewed.: Yes Medication/Allergy Home Medications: Amlodipine/Valsartan/Hcthiazid [Exforge Hct 5-160-12.5 mg Tab] 1 each PO DAILY 09/17/19 Ketorolac Tromethamine [Toradol 10 mg Tablet] 10 mg PO TID 09/17/19 Zolpidem Tartrate [Ambien] 10 mg PO QHS 09/17/19 Allergies/Adverse Reactions: No Known Allergies Allergy (Verified 09/17/19 11:07) Review of Systems Constitutional: PRESENT: fatigue Eyes: ABSENT: visual disturbances Ears: ABSENT: hearing changes Nose, Mouth, and Throat: ABSENT: vertigo Cardiovascular: PRESENT: dyspnea on exertion. ABSENT: chest pain Respiratory: PRESENT: dyspnea. ABSENT: sputum Gastrointestinal: ABSENT: abdominal pain Musculoskeletal: PRESENT: joint swelling Integumentary: PRESENT: diaphoresis Neurological: ABSENT: confusion Hematologic/Lymphatic: PRESENT: other - Lesion skin on palmar surface Physical Exam Vital Signs: Temp Pulse Resp BP Pulse Ox 98.6 F 123 H 20 115/87 H 100 09/17/19 10:58 09/17/19 10:58 09/17/19 15:01 09/17/19 15:01 09/17/19 15:01 Intake & Output 09/16/19 09/17/19 09/18/19 06:59 06:59 06:59 Intake Total 1000 Balance 1000 Weight 59 kg General appearance: PRESENT: no acute distress, cooperative Head exam: PRESENT: other - Erythematous/purplish rash with moderate distribution Respiratory exam: PRESENT: crackles - Fine crackles, symmetrical, unlabored. ABSENT: tachypnea, wheezes Cardiovascular exam: PRESENT: RRR, +S1, +S2, tachycardia GI/Abdominal exam: PRESENT: normal bowel sounds, soft. ABSENT: rebound, rigid Extremities exam: PRESENT: other - Mild crepitus in knee joints. ABSENT: joint swelling Musculoskeletal exam: PRESENT: other - No significant swelling in her knees elbows hands but does have erythema she has lesions in her hands Neurological exam: PRESENT: alert, awake, oriented to person, oriented to place, oriented to time, oriented to situation Psychiatric exam: ABSENT: agitated Skin exam: PRESENT: other - Alopecia. Erythematous lesions in both palms Results Laboratory Results: 09/17/19 11:26 09/17/19 11:26 09/17/19 09/17/19 09/17/19 11:26 11:26 14:10 WBC 5.6 RBC 4.52 Hgb 12.2 Hct 37.2 MCV 82 MCH 27.0 MCHC 32.8 RDW 14.1 H Plt Count 178 Seg Neutrophils % Not Reportable Sodium 140.4 Potassium 3.9 Chloride 104 Carbon Dioxide 27 Anion Gap 9 BUN 28 H Creatinine 1.24 Est GFR ( Amer) 56 L Glucose 112 H Lactic Acid 1.0 Calcium 9.1 Total Bilirubin 0.5 AST 101 H Alkaline Phosphatase 58 Total Protein 7.7 Albumin 3.4 L 09/17/19 09/17/19 11:26 11:26 Creatine Kinase 32 Troponin I < 0.012 Impressions: Chest X-Ray 09/17/19 11:08 IMPRESSION: Multifocal patchy opacities within the bilateral lung bases suspicious for multifocal pneumonia and similar to prior. Recommend follow-up to ensure resolution. Chest CT 09/17/19 16:19 IMPRESSION: Bilateral basal predominant consolidation and ground-glass opacities with irregular bronchovascular thickening. Shotty mediastinal adenopathy. Findings nonspecific and while may be seen with sarcoidosis, infection is not entirely excluded. Consider pulmonary consultation. Assessment and Plan - Diagnosis (1) Dyspnea on exertion Is this a current diagnosis for this admission?: Yes Plan: Uncertain about the cause of this at this moment. Differentials include pneumonia versus interstitial lung disease Chest x-ray showing findings were read as multifocal pneumonia but infiltrates do seem interstitial coupled with fine rales Will continue on antibiotics and placed on Levaquin for atypical coverage at this time Patient is not making any sputum so cannot obtain culture Follow-up blood culture Follow-up CT scan results (2) Multifocal pneumonia Is this a current diagnosis for this admission?: Yes Plan: Plan as above under problem #1 (3) Polyarthritis Is this a current diagnosis for this admission?: Yes Plan: Involving bilateral elbows, shoulders, knees and hands. No overt warmth or erythema surrounding joint. Get x-rays of the hands and knees This polyarthritis in combination with mild rash and alopecia leads me to believe that there is an underlying Rheumatological/Autoimmune disease/vasculitis playing a role here I sent labs for autoimmune and rheumatological work-up Start on Solu-Medrol and see if improves Check ESR, urinalysis and sed rate (4) Malar rash Is this a current diagnosis for this admission?: Yes Plan: Plan as listed in problem #3 (5) Hypertension Is this a current diagnosis for this admission?: Yes Plan: Continue amlodipine, HCTZ, valsartan - Time Time Spent with patient: 35 or more minutes
--- NOTE | 2019-09-17 19:08 | RADIOLOGY REPORT (SQ) ---
EXAM DESCRIPTION: KNEE BILATERAL 1-2 VIEWS COMPLETED DATE/TIME: 09/17/2019 6:44 pm REASON FOR STUDY: Arthralgia, 2 views COMPARISON: None. NUMBER OF VIEWS: Two views. TECHNIQUE: AP and lateral standing bilateral knees. LIMITATIONS: None. FINDINGS: MINERALIZATION: Normal. RIGHT KNEE BONES: No acute fracture. No worrisome bone lesions. MEDIAL COMPARTMENT: No significant osteophytes. No joint space narrowing. No chondrocalcinosis. LATERAL COMPARTMENT: No significant osteophytes. No joint space narrowing. No chondrocalcinosis. PATELLOFEMORAL COMPARTMENT: No significant osteophytes. No joint space narrowing. No chondrocalc inosis. LEFT KNEE BONES: No acute fracture. No worrisome bone lesions. MEDIAL COMPARTMENT: No significant osteophytes. No joint space narrowing. No chondrocalcinosis. LATERAL COMPARTMENT: No significant osteophytes. No joint space narrowing. No chondrocalcinosis. PATELLOFEMORAL COMPARTMENT: No significant osteophytes. No joint space narrowing. No chondrocalc inosis. IMPRESSION: NEGATIVE STUDY OF THE STANDING LEFT AND RIGHT KNEES. NO SIGNIFICANT JOINT SPACE NARROWIN G OR OTHER SIGNS OF ARTHRITIS. TECHNICAL DOCUMENTATION: JOB ID: [id number] [employer]- All Rights Reserved Reading location - IP/workstation name: [email or web address]
[2019-09-17] MEDS: METHYLPREDNISOLONE INJ 40 MG/1 ML SDV IV SCH (19:09)
--- NOTE | 2019-09-17 19:10 | RADIOLOGY REPORT (SQ) ---
EXAM DESCRIPTION: HAND BILATERAL 3 VIEWS COMPLETED DATE/TIME: 09/17/2019 6:44 pm REASON FOR STUDY: Arthralgia COMPARISON: None. EXAM PARAMETERS: NUMBER OF VIEWS: Three views right hand. Three views left hand. TECHNIQUE: AP, lateral and oblique radiographic images acquired of bilateral hands. LIMITATIONS: None. FINDINGS: RIGHT HAND: MINERALIZATION: Normal. BONES: No acute fracture or dislocation. No worrisome bone lesions. No significant osteophytes. JOINTS: No erosions. No marleen-articular osteopenia. No chondrocalcinosis. SOFT TISSUES: No swelling. No calcifications. OTHER: No other significant finding. LEFT HAND: MINERALIZATION: Normal. BONES: No acute fracture or dislocation. No worrisome bone lesions. No significant osteophytes. JOINTS: No erosions. No marleen-articular osteopenia. No chondrocalcinosis. SOFT TISSUES: No swelling. No calcifications. OTHER: No other significant finding. IMPRESSION: NEGATIVE STUDY BILATERAL HANDS. NO ACUTE POST-TRAUMATIC CHANGES. NO EXPLANATION FOR PAIN . TECHNICAL DOCUMENTATION: JOB ID: [id number] [employer]- All Rights Reserved Reading location - IP/workstation name: [email or web address]
[2019-09-17 19:47] LABS: APPEARANCE,URINE CLEAR; BILIRUBIN,URINE NEGATIVE (NEGATIVE); COLOR,URINE STRAW; GLUCOSE, URINE NEGATIVE (NEGATIVE); KETONES,URINE NEGATIVE (NEGATIVE); LEUKOCYTE ESTERASE,URINE NEGATIVE (NEGATIVE); NITRITE,URINE NEGATIVE (NEGATIVE); PROTEIN,URINE NEGATIVE (NEGATIVE); URINE SPECIFIC GRAVITY 1.008; UROBILINOGEN,URINE NEGATIVE mg/dL (<2.0)
[2019-09-17] MEDS ORDERED: ZOLPIDEM TARTRATE 5 MG TABLET PO PRN (22:00)
[2019-09-17] MEDS ORDERED: INFLUENZA QUAD (6MOS+) 2019-20 VAC 0.5 ML SYR IM ONE (22:40)
[2019-09-17] MEDS: NORMAL SALINE 1000 ML 1,000 ML IV PRN (22:42)
[2019-09-18 07:42] LABS: ABSOLUTE LYMPHOCYTES (AUTO) 0.4 10^3/uL (0.5-4.7); ABSOLUTE MONOCYTES (AUTO) 0.2 10^3/uL (0.1-1.4); ABSOLUTE NEUT (AUTO) 2.9 10^3/uL (1.7-8.2); BASOPHILS % (AUTO) 0.5 % (0-2); HEMATOCRIT 34.2 % (36.0-47.0); HEMOGLOBIN 11.5 g/dL (12.0-15.5); LYMPHOCYTES % (AUTO) 11.7 % (13-45); MEAN CORPUSCULAR HEMOGLOBIN 27.4 pg (27.0-33.4); MEAN CORPUSCULAR HGB CONC 33.8 g/dL (32.0-36.0); MEAN CORPUSCULAR VOLUME 81 fl (80-97); MONOCYTES % (AUTO) 6.6 % (3-13); PLATELET COUNT 162 10^3/uL (150-450); RED BLOOD COUNT 4.21 10^6/uL (3.72-5.28); RED CELL DISTRIBUTION WIDTH 13.7 % (11.5-14.0); SEGMENTED NEUTROPHILS % (AUTO) 81.2 % (42-78); TOTAL CELLS COUNTED % (AUTO) 100 %; WHITE BLOOD COUNT 3.6 10^3/uL (4.0-10.5)
[2019-09-18 07:53] LABS: ANION GAP 8 (5-19); BLOOD UREA NITROGEN 22 mg/dL (7-20); CALCIUM 8.5 mg/dL (8.4-10.2); CARBON DIOXIDE 23 mmol/L (22-30); CHLORIDE 108 mmol/L (98-107); GLUCOSE 127 mg/dL (75-110); POTASSIUM 4.6 mmol/L (3.6-5.0)
[2019-09-18] MEDS: NORMAL SALINE 1000 ML 1,000 ML IV PRN (09:53)
[2019-09-18] MEDS: LEVOFLOXACIN 500 MG/D5W RTU 500 MG/100 ML RTUPB IV SCH (09:54)
[2019-09-18] MEDS: ENOXAPARIN SODIUM INJ 40 MG/0.4 ML DISP.SYRIN SUBCUT SCH (09:55)
[2019-09-18] MEDS: HYDROCHLOROTHIAZIDE 12.5 MG TABLET PO SCH (09:55)
[2019-09-18] MEDS: METHYLPREDNISOLONE INJ 40 MG/1 ML SDV IV SCH ×2 (09:55→17:17)
[2019-09-18] MEDS: AMLODIPINE BESYLATE 5 MG TABLET PO SCH (09:55)
--- NOTE | 2019-09-18 13:04 | PDOC PROGRESS REPORT ---
Subjective Progress Note for:: 09/18/19 Subjective:: Patient states her breathing feels better today. Also states that her pain is improved with starting steroids. States he is having about throat clearing or not any significant cough. Denies any significant chest pain. Reason For Visit: DYSPNEA PNEUMONIA VS ILD Physical Exam Vital Signs: Temp Pulse Resp BP Pulse Ox 98.0 F 94 18 116/83 96 09/18/19 11:26 09/18/19 11:26 09/18/19 11:26 09/18/19 11:26 09/18/19 12:00 Pulse Oximeter Continuous Start: 09/17/19 17:31 Freq: RTQ4 Status: Active Protocol: Document 09/18/19 12:00 J (Rec: 09/18/19 12:24 [id number]) Pulse Oximetry Assessment Oxygen Saturation (92-100) 96 Oxygen Delivery Method Room Air Fraction of Inspired Oxygen (FIO2) 21 Equipment Usage Equipment in Use Continuous SpO2 Machine # 4 Intake & Output 09/17/19 09/18/19 09/19/19 06:59 06:59 06:59 Intake Total 1640 1000 Balance 1640 1000 Weight 59 kg General appearance: PRESENT: no acute distress, cooperative Neck exam: ABSENT: JVD Respiratory exam: PRESENT: crackles - Fine rails, symmetrical, unlabored. ABSENT: tachypnea, wheezes Cardiovascular exam: PRESENT: RRR, +S1, +S2. ABSENT: tachycardia GI/Abdominal exam: PRESENT: soft. ABSENT: rebound, rigid, tenderness Musculoskeletal exam: PRESENT: full ROM, other - No significant swelling in the knees, elbows or hands. Patient does have erythema rashes lesions that are small and located in her interphalangeal joints in both hands Neurological exam: PRESENT: alert, awake, oriented to person, oriented to place, oriented to time Skin exam: PRESENT: other - Erythematous/purplish malar rash with significant alopecia Results Laboratory Results: 09/18/19 06:56 09/18/19 06:56 09/17/19 09/17/19 09/17/19 14:10 19:14 19:46 WBC RBC Hgb Hct MCV MCH MCHC RDW Plt Count Seg Neutrophils % Sodium Potassium Chloride Carbon Dioxide Anion Gap BUN Creatinine Est GFR ( Amer) Glucose Lactic Acid 1.0 Calcium C-Reactive Protein < 5.0 TSH Urine Color STRAW Urine Appearance CLEAR Urine pH 8.0 Ur Specific [place] 1.008 Urine Protein NEGATIVE Urine Glucose (UA) NEGATIVE Urine Ketones NEGATIVE Urine Blood NEGATIVE Urine Nitrite NEGATIVE Ur Leukocyte Esterase NEGATIVE Urine WBC (Auto) 0 Urine RBC (Auto) 0 09/18/19 09/18/19 09/18/19 06:56 06:56 06:56 WBC 3.6 L RBC 4.21 Hgb 11.5 L Hct 34.2 L MCV 81 MCH 27.4 MCHC 33.8 RDW 13.7 Plt Count 162 Seg Neutrophils % 81.2 H Sodium 139.4 Potassium 4.6 Chloride 108 H Carbon Dioxide 23 Anion Gap 8 BUN 22 H Creatinine 0.99 Est GFR ( Amer) > 60 Glucose 127 H Lactic Acid Calcium 8.5 C-Reactive Protein TSH 0.20 L Urine Color Urine Appearance Urine pH Ur Specific [place] Urine Protein Urine Glucose (UA) Urine Ketones Urine Blood Urine Nitrite Ur Leukocyte Esterase Urine WBC (Auto) Urine RBC (Auto) 09/17/19 09/17/19 09/17/19 11:26 11:26 19:46 Creatine Kinase 32 Troponin I < 0.012 NT-Pro-B Natriuret Pep 50 Impressions: Hand X-Ray 09/17/19 00:00 IMPRESSION: NEGATIVE STUDY BILATERAL HANDS. NO ACUTE POST-TRAUMATIC CHANGES. NO EXPLANATION FOR PAIN. Knee X-Ray 09/17/19 00:00 IMPRESSION: NEGATIVE STUDY OF THE STANDING LEFT AND RIGHT KNEES. NO SIGNIFICANT JOINT SPACE NARROWING OR OTHER SIGNS OF ARTHRITIS. Chest X-Ray 09/17/19 11:08 IMPRESSION: Multifocal patchy opacities within the bilateral lung bases suspicious for multifocal pneumonia and similar to prior. Recommend follow-up to ensure resolution. Chest CT 09/17/19 16:19 IMPRESSION: Bilateral basal predominant consolidation and ground-glass opacities with irregular bronchovascular thickening. Shotty mediastinal adenopathy. Findings nonspecific and while may be seen with sarcoidosis, infection is not entirely excluded. Consider pulmonary consultation. Assessment and Plan - Diagnosis (1) Dyspnea on exertion Is this a current diagnosis for this admission?: Yes Plan: Uncertain about the cause of this at this moment. Differentials include pneumonia versus interstitial lung disease Chest CT showing bibasilar consolidation with irregular bronchovascular bands, increased groundglass opacities and mediastinal adenopathy. Hilar adenopathy was limited in evaluation given lack of contrast. Will continue on antibiotics with Levaquin [day 2 of antibiotics] Follow-up blood culture (2) Multifocal pneumonia Is this a current diagnosis for this admission?: Yes Plan: Plan as above under problem #1 (3) Polyarthritis Is this a current diagnosis for this admission?: Yes Plan: Involving bilateral elbows, shoulders, knees and hands. No overt warmth or swelling surrounding joint. X-rays of hands and knees did not show any evidence of arthritis or joint space disease. Patient's polyarthralgias with redness around her interphalangeal joints and hands combined with purplish malar facial rash and alopecia leads me to believe that there is an underlying Rheumatological/Autoimmune disease/vasculitis playing a role here Continue to follow-up autoimmune and rheumatological work-up Polyarthralgias are improving significantly with steroids ESR elevated at 53, rheumatoid factor and CRP are negative. (4) Malar rash Is this a current diagnosis for this admission?: Yes Plan: Plan as listed in problem #3 (5) Hypertension Qualifiers: Hypertension type: essential hypertension Qualified Code(s): I10 - Essential (primary) hypertension Is this a current diagnosis for this admission?: Yes Plan: Continue amlodipine, HCTZ, valsartan - Time Time Spent with patient: Less than 15 minutes
[2019-09-18] MEDS: VALSARTAN 160 MG TABLET PO SCH (14:08)
[2019-09-19 06:59] LABS: HEMATOCRIT 34.3 % (36.0-47.0); HEMOGLOBIN 11.4 g/dL (12.0-15.5); MEAN CORPUSCULAR HGB CONC 33.3 g/dL (32.0-36.0); MEAN CORPUSCULAR VOLUME 81 fl (80-97); PLATELET COUNT 175 10^3/uL (150-450); RED BLOOD COUNT 4.23 10^6/uL (3.72-5.28); WHITE BLOOD COUNT 4.6 10^3/uL (4.0-10.5)
[2019-09-19 07:10] LABS: ANION GAP 8 (5-19); BLOOD UREA NITROGEN 21 mg/dL (7-20); CALCIUM 8.7 mg/dL (8.4-10.2); CARBON DIOXIDE 22 mmol/L (22-30); CHLORIDE 111 mmol/L (98-107); GLUCOSE 115 mg/dL (75-110); POTASSIUM 4.2 mmol/L (3.6-5.0)
[2019-09-19 07:19] LABS: ABSOLUTE LYMPHOCYTES# (MANUAL) 0.8 10^3/uL (0.5-4.7); ABSOLUTE MONOCYTES # (MANUAL) 0.9 10^3/uL (0.1-1.4); BASOPHILS % (MANUAL) 0 % (0-2); EOSINOPHILS % (MANUAL) 0 % (0-6); LYMPHOCYTES % (MANUAL) 16 % (13-45); MONOCYTES % (MANUAL) 19 % (3-13); SEGMENTED NEUTROPHILS % (MAN) 64 % (42-78); TOTAL CELLS COUNTED 100
[2019-09-19 07:20] LABS: PLATELET COMMENT ADEQUATE; RBC MORPHOLOGY COMMENT NORMO-CYTIC/CHROMIC; TOXIC VACUOLATION PRESENT
[2019-09-19] MEDS: VALSARTAN 160 MG TABLET PO SCH (09:42)
[2019-09-19] MEDS: AMLODIPINE BESYLATE 5 MG TABLET PO SCH (09:43)
[2019-09-19] MEDS: HYDROCHLOROTHIAZIDE 12.5 MG TABLET PO SCH (09:43)
[2019-09-19] MEDS: LEVOFLOXACIN 500 MG/D5W RTU 500 MG/100 ML RTUPB IV SCH (09:43)
[2019-09-19] MEDS: ENOXAPARIN SODIUM INJ 40 MG/0.4 ML DISP.SYRIN SUBCUT SCH (09:44)
[2019-09-19] MEDS: METHYLPREDNISOLONE INJ 40 MG/1 ML SDV IV SCH ×2 (09:44→18:00)
--- NOTE | 2019-09-19 12:30 | PDOC PROGRESS REPORT ---
Subjective Progress Note for:: 09/19/19 Subjective:: Patient reports that she had an episode of chest pain last night associated with oxygen dropping into the high 80s. States the chest pain feels more like fluttering but not so much chest pain. Currently she is doing well and denies any chest pain or shortness of breath. States her fluttering has resolved. Polyarthralgias have also significantly improved. Reason For Visit: DYSPNEA PNEUMONIA VS ILD Physical Exam Vital Signs: Temp Pulse Resp BP Pulse Ox 98.5 F 98 18 133/95 H 95 09/19/19 07:40 09/19/19 09:59 09/19/19 09:59 09/19/19 07:40 09/19/19 09:59 Pulse Oximeter Continuous Start: 09/17/19 17:31 Freq: RTQ4 Status: Complete Protocol: Document 09/19/19 00:09 CMI (Rec: 09/19/19 00:09 CMI [id number]) Pulse Oximetry Assessment Equipment Usage Equipment Discontinued Continuous SpO2 Machine # 4 Intake & Output 09/18/19 09/19/19 09/20/19 06:59 06:59 06:59 Intake Total 1640 1340 Balance 1640 1340 Weight 59 kg 59.5 kg General appearance: PRESENT: no acute distress, cooperative Neck exam: ABSENT: JVD Respiratory exam: PRESENT: crackles, symmetrical, unlabored. ABSENT: tachypnea, wheezes Cardiovascular exam: PRESENT: +S1, +S2. ABSENT: RRR, tachycardia GI/Abdominal exam: PRESENT: normal bowel sounds, soft. ABSENT: rigid, tenderness Extremities exam: ABSENT: pedal edema Neurological exam: PRESENT: alert, awake, oriented to person, oriented to place, oriented to time Results Laboratory Results: 09/19/19 06:19 09/19/19 06:19 09/19/19 09/19/19 06:19 06:19 WBC 4.6 RBC 4.23 Hgb 11.4 L Hct 34.3 L MCV 81 MCH 27.0 MCHC 33.3 RDW 14.0 Plt Count 175 Seg Neutrophils % Not Reportable Sodium 140.7 Potassium 4.2 Chloride 111 H Carbon Dioxide 22 Anion Gap 8 BUN 21 H Creatinine 0.93 Est GFR ( Amer) > 60 Glucose 115 H Calcium 8.7 09/17/19 09/17/19 09/17/19 11:26 11:26 19:46 Creatine Kinase 32 Troponin I < 0.012 NT-Pro-B Natriuret Pep 50 Impressions: Hand X-Ray 09/17/19 00:00 IMPRESSION: NEGATIVE STUDY BILATERAL HANDS. NO ACUTE POST-TRAUMATIC CHANGES. NO EXPLANATION FOR PAIN. Knee X-Ray 09/17/19 00:00 IMPRESSION: NEGATIVE STUDY OF THE STANDING LEFT AND RIGHT KNEES. NO SIGNIFICANT JOINT SPACE NARROWING OR OTHER SIGNS OF ARTHRITIS. Chest X-Ray 09/17/19 11:08 IMPRESSION: Multifocal patchy opacities within the bilateral lung bases suspicious for multifocal pneumonia and similar to prior. Recommend follow-up to ensure resolution. Chest CT 09/17/19 16:19 IMPRESSION: Bilateral basal predominant consolidation and ground-glass opacities with irregular bronchovascular thickening. Shotty mediastinal adenopathy. Findings nonspecific and while may be seen with sarcoidosis, infection is not entirely excluded. Consider pulmonary consultation. Assessment and Plan - Diagnosis (1) Dyspnea on exertion Is this a current diagnosis for this admission?: Yes Plan: Uncertain about the cause of this at this moment. Differentials include pneumonia versus interstitial lung disease Chest CT showing bibasilar consolidation with irregular bronchovascular bands, increased groundglass opacities and mediastinal adenopathy. Hilar adenopathy was limited in evaluation given lack of contrast. Will continue on antibiotics with Levaquin [day 3 of antibiotics] Follow-up blood culture (2) Multifocal pneumonia Is this a current diagnosis for this admission?: Yes Plan: Plan as above under problem #1 (3) Polyarthritis Is this a current diagnosis for this admission?: Yes Plan: Involving bilateral elbows, shoulders, knees and hands. No overt warmth or swe lling surrounding joint. X-rays of hands and knees did not show any evidence of arthritis or joint space disease. Patient's polyarthralgias with redness around her interphalangeal joints and hands combined with purplish malar facial rash and alopecia leads me to believe that there is an underlying Rheumatological/Autoimmune disease/vasculitis playing a role here Continue to follow-up autoimmune and rheumatological work-up Polyarthralgias are resolving with steroids ESR elevated at 53, rheumatoid factor and CRP are negative. (4) Malar rash Is this a current diagnosis for this admission?: Yes Plan: Plan as listed in problem #3 (5) Hypertension Qualifiers: Hypertension type: essential hypertension Qualified Code(s): I10 - Essential (primary) hypertension Is this a current diagnosis for this admission?: Yes Plan: Continue amlodipine, HCTZ, valsartan (6) Chest pain Qualifiers: Chest pain type: unspecified Qualified Code(s): R07.9 - Chest pain, unspecified Is this a current diagnosis for this admission?: Yes Plan: Occurred last night. Very much nonspecific. Unlikely anginal. EKG has been reviewed by me and shows no changes as compared to prior EKGs Incentive spirometer given We will monitor overnight to see if any recurrence of the episode (7) Low TSH level Is this a current diagnosis for this admission?: Yes Plan: Check T3 and T4 levels - Time Time Spent with patient: 15-24 minutes
[2019-09-19] MEDS: NORMAL SALINE 1000 ML 1,000 ML IV PRN (18:00)
[2019-09-20] MEDS: NORMAL SALINE 1000 ML 1,000 ML IV PRN (04:50)
[2019-09-20 07:54] LABS: FREE T3 1.75 pg/mL (2.77-5.27); FREE T4 (FREE THYROXINE) 1.18 ng/dL (0.78-2.19)
[2019-09-20] MEDS: HYDROCHLOROTHIAZIDE 12.5 MG TABLET PO SCH (09:58)
[2019-09-20] MEDS: AMLODIPINE BESYLATE 5 MG TABLET PO SCH (09:59)
[2019-09-20] MEDS: VALSARTAN 160 MG TABLET PO SCH (09:59)
[2019-09-20] MEDS: METHYLPREDNISOLONE INJ 40 MG/1 ML SDV IV SCH (10:00)
[2019-09-20] MEDS: ENOXAPARIN SODIUM INJ 40 MG/0.4 ML DISP.SYRIN SUBCUT SCH (10:00)
[2019-09-20] MEDS: LEVOFLOXACIN 500 MG/D5W RTU 500 MG/100 ML RTUPB IV SCH (10:01)
[2019-09-20] MEDS ORDERED: NORMAL SALINE 1000 ML 1,000 ML IV ONE (10:18)
[2019-09-20] MEDS ORDERED: NORMAL SALINE 1000 ML 500 ML IV ONE (10:18)
[2019-09-20 15:36] LABS: ANTIMYELOPEROXIDASE (MPO) AB <9.0 U/mL (0.0-9.0); CYTOPLASMIC (C-ANCA) <1:20 titer (Neg:<1:20)
--- NOTE | 2019-09-20 15:45 | PDOC DISCHARGE SUMMARY ---
Impression - Admit/DC Date/PCP Admission Date/Primary Care Provider: 09/17/19 18:17 GEORGINA ZHOU MD Discharge Date: 09/20/19 - Discharge Diagnosis (1) Dyspnea on exertion Is this a current diagnosis for this admission?: Yes (2) Multifocal pneumonia Is this a current diagnosis for this admission?: Yes (3) Polyarthritis Is this a current diagnosis for this admission?: Yes (4) Malar rash Is this a current diagnosis for this admission?: Yes (5) Hypertension Is this a current diagnosis for this admission?: Yes (6) Chest pain Is this a current diagnosis for this admission?: Yes (7) Acute respiratory failure with hypoxia Is this a current diagnosis for this admission?: Yes (8) ESS (euthyroid sick syndrome) Is this a current diagnosis for this admission?: Yes - Assessment Summary: Patient presented with shortness of breath. Patient had minimal cough at the moment. Chest x-ray revealed some findings suggestive of consolidation. On physical exam patient was noted to have redness in her interphalangeal joints of her fingers bilaterally and significant alopecia with some crepitus in the knee joints. Patient complained of polyarthralgias as well. CT scan was done without contrast which showed consolidation bibasilar with irregular bronchovascular bands, increased groundglass opacities and mediastinal adenopathy. Hilar adenopathy was limited in evaluation given lack of contrast. Patient was started on treatment for pneumonia for which she received IV ant ibiotics and transition to p.o. Levaquin to complete a 7-day total course. Patient also received steroids with suspicion that the CT findings may have a little component of interstitial lung disease from a possibly undiagnosed rheumatological/autoimmune condition especially in light of all her systemic findings. ESR was also elevated but CRP was normal. Patient endorsed significant improvement with steroids in terms of her polyarthralgias and her shortness of breath. Rheumatoid factor was negative. X-rays of her hands and fingers and her knees showed no significant evidence of arthritis or joint deformity. Patient has also been noted to have good oxygen levels at rest but often desatted to 88 to 92% when ambulating. However patient did not drop below 88% and does not require home oxygen at discharge. 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 Of note, thyroid function tests revealed low TSH with normal T4 and low T3 suggestive of euthyroid sick syndrome and has been instructed to have a repeat thyroid function test done in 4 to 6 weeks. - Additional Information Resuscitation Status: Full Code Discharge Diet: Regular Discharge Activity: Activity As Tolerated Referrals: GEORGINA ZHOU MD [Primary Care Provider] - Prescriptions: Prednisone [Deltasone 10 mg Tablet] 10 mg PO BID 5 Days #10 tablet Levofloxacin [Levaquin 500 mg Tablet] 500 mg PO DAILY 3 Days #3 tablet Home Medications: Amlodipine/Valsartan/Hcthiazid [Exforge Hct 5-160-12.5 mg Tab] 1 each PO DAILY 09/17/19 Ketorolac Tromethamine [Toradol 10 mg Tablet] 10 mg PO TID 09/17/19 Zolpidem Tartrate [Ambien] 10 mg PO QHS 09/17/19 Levofloxacin [Levaquin 500 mg Tablet] 500 mg PO DAILY 3 Days #3 tablet 09/20/19 Prednisone [Deltasone 10 mg Tablet] 10 mg PO BID 5 Days #10 tablet 09/20/19 History of Present Illiness History of Present Illness: HARMEET ESPARZA is a 49 year old female with history of hypertension, presents with complaints of worsening dyspnea for the past month. Patient came to the ER at beginning of August with cough and dyspnea was discharged with azithromycin. Patient took this for a few days and her symptoms improved but later started to worsen. The cough is pretty much resolved with only some mild throat clearing on occasion. Patient also endorses significant dyspnea on exertion. She denies orthopnea. Patient also complains of polyarthralgias involving her knees, shoulders, joints and hands elbows, and ankles. Patient states that she was told in the ER our last visit that she may have rheumatoid arthritis but has never been officially diagnosed with this. Denies fevers. Endorses occasional joint swelling involving those joints. Also acknowledges facial rash and discolorations in palmar surface which have been present since February this year. Physical Exam Vital Signs: Temp Pulse Resp BP Pulse Ox 98.0 F 92 18 124/91 H 92 09/20/19 08:35 09/20/19 08:35 09/20/19 08:35 09/20/19 08:35 09/20/19 08:35 Pulse Oximeter Continuous Start: 09/17/19 17:31 Freq: RTQ4 Status: Complete Protocol: Document 09/19/19 00:09 CMI (Rec: 09/19/19 00:09 CMI [id number]) Pulse Oximetry Assessment Equipment Usage Equipment Discontinued Continuous SpO2 Machine # 4 Intake & Output 09/19/19 09/20/19 09/21/19 06:59 06:59 06:59 Intake Total 2340 2315 Balance 2340 2315 Weight 59.5 kg 57.5 kg General appearance: PRESENT: no acute distress Respiratory exam: PRESENT: crackles - Dry crackles Musculoskeletal exam: PRESENT: ambulatory Neurological exam: PRESENT: alert, awake Results Laboratory Results: WBC 4.6 10^3/uL (4.0-10.5) 09/19/19 06:19 RBC 4.23 10^6/uL (3.72-5.28) 09/19/19 06:19 Hgb 11.4 g/dL (12.0-15.5) L 09/19/19 06:19 Hct 34.3 % (36.0-47.0) L 09/19/19 06:19 MCV 81 fl (80-97) 09/19/19 06:19 MCH 27.0 pg (27.0-33.4) 09/19/19 06:19 MCHC 33.3 g/dL (32.0-36.0) 09/19/19 06:19 RDW 14.0 % (11.5-14.0) 09/19/19 06:19 Plt Count 175 10^3/uL (150-450) 09/19/19 06:19 Lymph % (Auto) Not Reportable 09/19/19 06:19 [place] % (Auto) Not Reportable 09/19/19 06:19 Eos % (Auto) Not Reportable 09/19/19 06:19 Baso % (Auto) Not Reportable 09/19/19 06:19 Absolute Neuts (auto) Not Reportable 09/19/19 06:19 Absolute Lymphs (auto) Not Reportable 09/19/19 06:19 Absolute Monos (auto) Not Reportable 09/19/19 06:19 Absolute Eos (auto) Not Reportable 09/19/19 06:19 Absolute Basos (auto) Not Reportable 09/19/19 06:19 Total Counted 100 09/19/19 06:19 Seg Neutrophils % Not Reportable 09/19/19 06:19 Seg Neuts % (Manual) 64 % (42-78) 09/19/19 06:19 Lymphocytes % (Manual) 16 % (13-45) 09/19/19 06:19 Atypical Lymphs % 1 % (0) 09/19/19 06:19 Monocytes % (Manual) 19 % (3-13) H 09/19/19 06:19 Eosinophils % (Manual) 0 % (0-6) 09/19/19 06:19 Basophils % (Manual) 0 % (0-2) 09/19/19 06:19 Abs Neuts (Manual) 2.9 10^3/uL (1.7-8.2) 09/19/19 06:19 Abs Lymphs (Manual) 0.8 10^3/uL (0.5-4.7) 09/19/19 06:19 Abs Monocytes (Manual) 0.9 10^3/uL (0.1-1.4) 09/19/19 06:19 Absolute Eos (Manual) 0.0 10^3/uL (0.0-0.6) 09/19/19 06:19 Abs Basophils (Manual) 0.0 10^3/uL (0.0-0.2) 09/19/19 06:19 Toxic Vacuolation PRESENT 09/19/19 06:19 Large Platelets PRESENT 09/17/19 11:26 Platelet Comment ADEQUATE 09/19/19 06:19 Anisocytosis SLIGHT 09/17/19 11:26 Ovalocytes SLIGHT 09/17/19 11:26 RBC Morph Comment NORMO-CYTIC/CHROMIC 09/19/19 06:19 ESR 53 mm/hr (0-20) H 09/17/19 19:46 Sodium 140.7 mmol/L (137-145) 09/19/19 06:19 Potassium 4.2 mmol/L (3.6-5.0) 09/19/19 06:19 Chloride 111 mmol/L (98-107) H 09/19/19 06:19 Carbon Dioxide 22 mmol/L (22-30) 09/19/19 06:19 Anion Gap 8 (5-19) 09/19/19 06:19 BUN 21 mg/dL (7-20) H 09/19/19 06:19 Creatinine 0.93 mg/dL (0.52-1.25) 09/19/19 06:19 Est GFR ( Amer) > 60 (>60) 09/19/19 06:19 Est GFR (MDRD) Non-Af > 60 (>60) 09/19/19 06:19 Glucose 115 mg/dL (75-110) H 09/19/19 06:19 Lactic Acid 1.0 mmol/L (0.7-2.1) 09/17/19 14:10 Calcium 8.7 mg/dL (8.4-10.2) 09/19/19 06:19 Total Bilirubin 0.5 mg/dL (0.2-1.3) 09/17/19 11:26 Direct Bilirubin 0.2 mg/dL (0.0-0.4) 09/17/19 11:26 Neonat Total Bilirubin Not Reportable 09/17/19 11:26 Neonat Direct Bilirubin Not Reportable 09/17/19 11:26 Neonat Indirect Bili Not Reportable 09/17/19 11:26 AST 101 U/L (14-36) H 09/17/19 11:26 ALT 51 U/L (<35) 09/17/19 11:26 Alkaline Phosphatase 58 U/L (38-126) 09/17/19 11:26 Creatine Kinase 32 U/L (30-135) 09/17/19 11:26 Troponin I < 0.012 ng/mL 09/17/19 11:26 C-Reactive Protein < 5.0 mg/L (<10.0) 09/17/19 19:46 NT-Pro-B Natriuret Pep 50 pg/mL (<125) 09/17/19 19:46 Total Protein 7.7 g/dL (6.3-8.2) 09/17/19 11:26 Albumin 3.4 g/dL (3.5-5.0) L 09/17/19 11:26 TSH 0.20 uIU/mL (0.47-4.68) L 09/18/19 06:56 Free T4 1.18 ng/dL (0.78-2.19) 09/20/19 06:32 Free T3 pg/mL 1.75 pg/mL (2.77-5.27) L 09/20/19 06:32 Urine Color STRAW 09/17/19 19:14 Urine Appearance CLEAR 09/17/19 19:14 Urine pH 8.0 (5.0-9.0) 09/17/19 19:14 Ur Specific [place] 1.008 09/17/19 19:14 Urine Protein NEGATIVE mg/dL (NEGATIVE) 09/17/19 19:14 Urine Glucose (UA) NEGATIVE mg/dL (NEGATIVE) 09/17/19 19:14 Urine Ketones NEGATIVE mg/dL (NEGATIVE) 09/17/19 19:14 Urine Blood NEGATIVE (NEGATIVE) 09/17/19 19:14 Urine Nitrite NEGATIVE (NEGATIVE) 09/17/19 19:14 Urine Bilirubin NEGATIVE (NEGATIVE) 09/17/19 19:14 Urine Urobilinogen NEGATIVE mg/dL (<2.0) 09/17/19 19:14 Ur Leukocyte Esterase NEGATIVE (NEGATIVE) 09/17/19 19:14 Urine WBC (Auto) 0 /HPF 09/17/19 19:14 Urine RBC (Auto) 0 /HPF 09/17/19 19:14 Urine Bacteria (Auto) TRACE /HPF 09/17/19 19:14 Squamous Epi Cells Auto 1 /HPF 09/17/19 19:14 Urine Mucus (Auto) RARE /LPF 09/17/19 19:14 Urine Ascorbic Acid NEGATIVE (NEGATIVE) 09/17/19 19:14 Rheumatoid Factor NEGATIVE (NEGATIVE) 09/17/19 19:46 Influenza A (Rapid) NEGATIVE (NEGATIVE) 09/17/19 11:26 Influenza B (Rapid) NEGATIVE (NEGATIVE) 09/17/19 11:26 09/17/19 09/17/19 11:26 19:46 Troponin I < 0.012 NT-Pro-B Natriuret Pep 50 Impressions: Hand X-Ray 09/17/19 00:00 IMPRESSION: NEGATIVE STUDY BILATERAL HANDS. NO ACUTE POST-TRAUMATIC CHANGES. NO EXPLANATION FOR PAIN. Knee X-Ray 09/17/19 00:00 IMPRESSION: NEGATIVE STUDY OF THE STANDING LEFT AND RIGHT KNEES. NO SIGNIFICANT JOINT SPACE NARROWING OR OTHER SIGNS OF ARTHRITIS. Chest X-Ray 09/17/19 11:08 IMPRESSION: Multifocal patchy opacities within the bilateral lung bases suspicious for multifocal pneumonia and similar to prior. Recommend follow-up to ensure resolution. Chest CT 09/17/19 16:19 IMPRESSION: Bilateral basal predominant consolidation and ground-glass op acities with irregular bronchovascular thickening. Shotty mediastinal adenopathy. Findings nonspecific and while may be seen with sarcoidosis, infection is not entirely excluded. Consider pulmonary consultation. Plan Time Spent: Less than 30 Minutes Stroke Is this a Stroke Patient?: No Acute Heart Failure - Is this a Heart Failure Patient?: No
[2019-09-20 16:38] LABS: ANTINUCLEAR ANTIBODIES Negative (Negative); ATYPICAL PANCA <1:20 titer (Neg:<1:20)
[2019-09-20 16:40] VITALS: BP 144/71
== END 2019-09-20 17:18 | disposition home or self-care (01) | DRG 195 ==
LOC: ER 10:30 → EH 18:17 → 2N 21:36
PROVIDERS: ADMIT Internal Medicine; ATTEND Internal Medicine
DX: J18.9 Pneumonia, unspecified organism (principal); J84.89 Other specified interstitial pulmonary diseases; E07.81 Sick-euthyroid syndrome; L65.9 Nonscarring hair loss, unspecified; R21 Rash and other nonspecific skin eruption; I10 Essential (primary) hypertension; M13.0 Polyarthritis, unspecified; Z79.899 Other long term (current) drug therapy; R07.9 Chest pain, unspecified; Z87.891 Personal history of nicotine dependence; Z82.49 Family history of ischemic heart disease and other diseases of the circulatory system; Z82.61 Family history of arthritis
CPT/HCPCS: 36415; 71046; 71250; 80048; 80053; 81001; 82550; 83516; 83605; 83880; 84439; 84443; 84481; 84484; 85025; 85652; 86038; 86140; 86200; 86225; 86235; 86256; 86430; 87040; 87804; 90686; 93005; 93010; 94640; 94762; 94799; 96365; 96367; 99285; J1650; J1956; J2543; J2920; J3370; J3490; J7030; J7620